=== PATIENT | female | born 1990 | race Caucasian/White ===

== ENCOUNTER 2025-01-07 09:36 | Outpatient (OUT) | payer MEDICARE, MEDICAID, SELFPAY ==
[2025-01-07 10:31] LABS: Basophils Percent Auto 0.5 % (0.2-2.0); Eosinophils Absolute Auto 0.1 10^3/uL (0.0-0.7); Eosinophils Percent Auto 1.4 % (0.9-7.0); Hematocrit 39.6 % (36.0-48.0); Hemoglobin 13.1 g/dL (12.0-16.0); Immature Granulocytes Abs Auto 0.01 10^3/uL (0.00-0.03); Immature Granulocytes Pct Auto 0.2 % (0.0-0.5); Lymphocytes Absolute Auto 1.5 10^3/uL (1.2-3.8); Lymphocytes Percent Auto 27.8 % (20.5-60.0); Mean Corpuscular HGB Conc 33.1 g/dL (29.9-35.2); Mean Corpuscular Hemoglobin 27.5 pg (26.7-34.0); Mean Platelet Volume 9.1 fL (9.5-13.5); Monocytes Absolute Auto 0.4 10^3/uL (0.3-0.8); Monocytes Percent Auto 7.8 % (1.7-12.0); Neutrophils Absolute Auto 3.4 10^3/uL (1.4-6.5); Neutrophils Percent Auto 62.3 % (43.0-75.0); Platelet Count 315 10^3/uL (150-450); Red Blood Count 4.77 10^6/uL (4.20-5.40); Red Cell Distribution Width 13.2 % (11.0-15.0); White Blood Count 5.5 10^3/uL (4.0-11.0)
[2025-01-07 10:38] LABS: Estimated Average Glucose 108 mg/dL; Glycohemoglobin A1C 5.4 % (4.5-6.2)
[2025-01-07 11:50] LABS: Alanine Aminotransferase 20 U/L (14-59); Albumin Globulin Ratio 1.1; Albumin Level 3.9 g/dL (3.4-5.0); Alkaline Phosphatase 80 U/L (46-116); Anion Gap 11.4; Aspartate Amino Transferase 14 U/L (15-37); BUN Creatinine Ratio 15.3; Bilirubin Total 0.4 mg/dL (0.2-1.0); Carbon Dioxide 27.6 mmol/L (21.0-32.0); Chloride 104 mmol/L (98-107); Chol HDL Ratio 3.6; Cholesterol 196 mg/dL (<=200); Estimated GFR (African America >60 (>=60 mL/min/1.73m^2); Estimated GFR (Non-African Ame >60 (>=60 mL/min/1.73m^2); Free T3 3.08 pg/mL (2.18-3.98); Globulin 3.7 g/dL; Glucose 98 mg/dL (74-106); HDL Cholesterol 55 mg/dL (40-60); LDL Cholesterol Calculated 130.2 mg/dL; Sodium 139 mmol/L (136-145); Thyroid Stimulating Hormone 1.108 uIU/mL (0.358-3.740); Total Protein 7.6 g/dL (6.4-8.2); Triglycerides 54 mg/dL (<=150); VLDL CHOLESTEROL 10.8 mg/dL
[2025-01-08 13:09] LABS: Insulin 11.2 uIU/mL (2.6-24.9)
== END 2025-01-07 09:37 | disposition home or self-care (01) ==
PROVIDERS: PCP Nurse Practitioner Family; Visit Provider Nurse Practitioner Family
DX: E78.5 Hyperlipidemia, unspecified (principal); R73.01 Impaired fasting glucose; D50.9 Iron deficiency anemia, unspecified; R53.83 Other fatigue; E55.9 Vitamin D deficiency, unspecified
CPT/HCPCS: 36415; 80053; 80061; 82306; 83036; 83525; 83540; 84436; 84443; 84481; 85025

== ENCOUNTER 2025-02-27 12:44 | Outpatient (OUT) | payer MEDICARE, SELFPAY ==
--- NOTE | 2025-02-27 13:00 | CA_ITS ---
Patient Name: DOUG BARDALES MR#: [id number] : 1990 Exam Date: 02/27/2025 Ordering Doctor: DR. MITCHELL BARRERA M.D. ECHOCARDIOGRAM REPORT PROCEDURE: CA ECHO DOPPLER COMPLETE INDICATIONS: Dyspnea on exertion COMPARISON: None. DESCRIPTION: COMPLETE ECHOCARDIOGRAM Real-time transthoracic echocardiography with 2D, M-mode, spectral and color flow Doppler performed. QUALITY: Technical quality was good. LEFT VENTRICLE: Normal chamber size. Normal left ventricular wall thickness. Systolic function is normal. LV EF: Normal left ventricular ejection fraction, (>55%). DIASTOLIC: Normal diastolic function. ATRIAL SEPTUM: LEFT ATRIUM: Normal chamber size. RIGHT ATRIUM: Normal chamber size. RIGHT VENTRICLE: Normal chamber size. Normal right ventricular systolic function. TRICUSPID VALVE: Normal mobility and thickness. No stenosis with no regurgitation. Unable to assess right-sided pressures due to lack of measurable tricuspid regurgitation. MITRAL VALVE: Normal mobility and thickness. No evidence of mitral valve stenosis. There is no mitral annular calcification. Trivial mitral regurgitation. AORTIC VALVE: Normal trileaflet appearance. No visible sclerosis. Normal leaflet mobility. No evidence of aortic valve stenosis. No aortic regurgitation. AORTIC ROOT: Normal diameter and appearance, measuring 2.8 cm. Ascending aorta is normal in size, measuring 2.8 cm. PULMONIC VALVE: Normal thickness and mobility. No stenosis. Trivial regurgitation. PERICARDIUM: No evidence of pericardial effusion. IVC: Collapses with inspirations. IVC is normal in size. PLEURA: CONCLUSION: 1. Normal ventricular size and function. LVEF is estimated at 65%. 2. No significant valvular dysfunction. 3. Unable to assess right-sided pressures due to lack of measurable tricuspid regurgitation. 4. No pericardial effusion. Adult Echocardiography Procedure Report Left Ventricle LVEDD (3.7 - 5.6 cm): 4.60 cm LVESD (2.2 - 4.0 cm): 2.93 cm LVIVS thickness (0.6 - 1.2 cm): 0.85 cm LVPW thickness (0.5 - 1.0 cm): 1.05 cm e': 0.21 m/s E - e': 6.06 LVOT Max Gradient: 6.63 mm[Hg] LVOT Area (cm2): 1.29 m/s Peak Velocity (LVOT): 1.29 m/s LVOT Diameter 2.09 cm Left Atrium LA Volume Index (2D A2C): 25.83 ml/m2 Left Atrium Systolic Dimension: 4.34 cm Mitral Valve MV E to A Ratio: 1.49 Mitral Valve A-Wave Peak Velocity: 0.84 m/s Mitral Valve E-Wave Peak Velocity: 1.26 m/s Right Ventricle Aorta AO Root Diam: 2.77 cm Ascending Ao Diam: 2.79 cm Aortic Valve AoV Area (Peak Patrick): 2.23 cm2, 2.23 cm2 Peak Velocity(Antegrade Flow): 1.97 m/s Peak Gradient(Antegrade Flow): 15.60 mm[Hg] Tricuspid Valve Pulmonic Valve Peak Gradient: 7.38 mm[Hg], 9.19 mm[Hg] Right Atrium Right Atrium Systolic Pressure: 36.02 ml, 36.02 ml Dictated by: Hemant Ventura M.D. on 02/27/2025 at 17:52 Approved by: Hemant Ventura M.D. on 02/27/2025 at 17:58
== END 2025-02-27 12:45 | disposition home or self-care (01) ==
LOC: CARD 12:44
PROVIDERS: PCP Nurse Practitioner Family; Visit Provider Internal Medicine Cardiovascular Disease
DX: R06.09 Other forms of dyspnea (principal)
CPT/HCPCS: 93306

== ENCOUNTER 2025-07-03 11:09 | Outpatient (OUT) | payer MEDICARE, MEDICAID, SELFPAY ==
--- OUTSIDE RECORDS SUMMARY | 2024-10-05 04:00 | XMS_ITS ---
Author Organization [facility] Address [address] [place] [address] Care Team Providers Care Autocad Electrical Designer Name Role Phone Dr. Keven Pelayo Primary Care Provider REASON FOR VISIT FILLING Encounters Encounter Location Date Provider Diagnosis [facility] [address] [place] [address] 10/05/2024 Keven Pelayo Plan Of Treatment Next Appt Details Provider Name:Mikaela Salazar , 07/12/2025 11:15:00 AM, [address], [place], [address], Progress Notes * DOUG BARDALESDOB:1990 (34 yo F)Acc No.[id number]:10/05/2024 Patient: DOUG CAMACHO Provider: Cosme Pelayo DDS :1990 A ge:34 Y S ex:Female Date:10/05/2024 Address:[address] [place] [address], [id number] Subjective: * Chief Complaints: * 1 . FILLING. * Medical History: Objective: * Vitals: Assessment: Plan: * Treatment: * Images: * Electronic signature of Dr. Keven Pelayo , [facility], [id number] on 07/03/2025 at 10:31 AM EDT Sign off status: Pending * Provider: Cosme Pelayo DDS Date: 0 10/05/2024 Generated for Printi ng/Faoraciog/eTransmitting on: 1 10:31 AM EDT
--- OUTSIDE RECORDS SUMMARY | 2024-10-24 04:30 | XMS_ITS ---
Author Organization [facility] Address [address] [place] [address] Care Team Providers Care Meat Grader Name Role Phone Dr. Keven Pelayo Primary Care Provider [phone] Juany Nat Whipple Unavailable [phone] REASON FOR VISIT 6 MONTHS Encounters Encounter Location Date Provider Diagnosis [facility] [address] [place] [address] 10/24/2024 Nat Whipple Plan Of Treatment Next Appt Details Provider Name:Mikaela Salazar , 07/12/2025 11:15:00 AM, [address], [place], [address], Progress Notes * DOUG BARDALESDOB:1990 (34 yo F)Acc No.[id number]:10/24/2024 Patient: DOUG CAMACHO Provider: John Whipple :1990 A ge:34 Y S ex:Female Date:10/24/2024 Address:[facility] [place], [facility] Pcp:Dr. Keven Pelayo Subjective: * Chief Complaints: * 1 . 6 MONTHS. * Medical History: Objective: * Vitals: Assessment: Plan: * Treatment: * Images: * Electronic signature of Shaye Whipple on 07/03/2025 at 10:31 AM EDT Sign off status: Pending * Provider: John Whipple Date: 0 10/24/2024 Generated for Ariana leavitt/John/eTransmitting on: 1 10:31 AM EDT
--- OUTSIDE RECORDS SUMMARY | 2025-06-19 07:00 | XMS_ITS ---
Author Organization [facility] [place] Address [address] [place] [address] Care Team Providers Care Iv Rn Name Role Phone Nilsa Delgado Primary Care Provider Allergies No Known Allergies REASON FOR VISIT Years ago was on a weight loss med Truvy- said helps with POTS, BP and weight loss- stopped taking due to ingredients, now switched back and wants to restart, Few weeks ago she had a [id number] appointment with POTS Specialist- is getting tilt table test in June- they think its Hyperadrenergic POTS Medications Medication SIG (Take, Route, Frequency, Duration) Notes Start Date End Date Status hydroCHLOROthiazide 25 MG 1 tablet in morning Orally Once a day; Duration: 30 days 04/05/2025 Active Social History Tobacco Use: Social History Observation Description Date Details (start date - stop date) Never Smoker NA - NA Tobacco Control (Standard) Question Answer Notes Tobacco use: Nonsmoker Vital Signs Weight 203.8 lbs 06/19/2025 Height 60 in 06/19/2025 Blood pressure systolic 170 mm Hg 06/19/20 25 Blood pressure diastolic 86 mm Hg 025 BMI 39.8 kg/m2 06/19/2025 Encounters Encounter Location Date Provider Diagnosis [facility] [address] [place] [address] 06/19/2025 Nilsa Delgado HTN (hypertension) I10 Assessments Encounter Date Diagnosis (ICD Code) Assessment Notes Treatment Notes Treatment Clinical Notes Section Notes 06/19/2025 HTN (hypertension) (ICD-10 - I10) stop metoprolol on own states tolerates HCTZ, double dose bp check 2 weeks fu cardiology as scheduled Plan Of Treatment Medication Medication Name Sig Start Date Stop Date Notes hydroCHLOROthiazide 25 MG 1 tablet in th e morning Orally Once a day; Duration: 30 days 04/05/2025 Treatment Notes Assessment Notes HTN (hypertension) stop metoprolol on own states tolerates HCTZ, double dose bp check 2 weeks fu cardiology as scheduled Next Appt Details Follow Up: prn,2 Weeks, Reas on: Progress Notes * Raymon VASQUEZDOB:1990 (34 yo F)Acc No.[id number]:06/19/2025 Progress Note Patient: Raymon CAMACHO Provider: Sebastián Delgado ([facility]), JEWEL SORTER :1990 A ge:34 Y S ex:Female Date:06/19/2025 Address:[address] [place] [address], [address] [place], [id number] Check In:10:45 AM ESTCheck O ut:11:27 AM EST Subjective: * Chief Complaints: * 1 . Years ago was on a weight loss med Truvy- said helps with POTS, BP and weight loss- stopped taking due to ingredients, now switched back and wants to restart. 2. Few weeks ago she had a hyjz-j-yjiskr appointment with POTS Specialist- is getting tilt table test in June- they think its Hyperadrenergic POTS. * HPI: G eneral: discuss supplement she wants to take cardiology working up for sub type of POTS she says has upcoming tilt table test. * ROS: G eneral/Constitutional: Fever d enies. H eadache d enies. W eight loss?denies. O ther l ightheaded at times, worse with a lot of stooping and bending. ? O phthalmologic: Discharge d enies. E ye Pain d enies. I tching and redness d enies. E NT: Nasal discharge d enies. N tawanna congestion d enies.?Sore throat d enies. C ardiovascular: Chest tightness/ heavy pressure d enies. R apid heart rate a t times. S welling of extremities d enies. C hest pain d enies. R espiratory: Productive cough d enies. C hest pain d enies. C ough d enies. S hortness of breath d enies. W heezing d enies. ? G astrointestinal: Abdominal pain d enies. C onstipation d enies. D ecreased appetite d enies. D iarrhea d enies. N ausea d enies. V omiting?denies. G enitourinary: Urinary incontinence d enies. P ainful urination d enies. M usculoskeletal: Back pain d enies. N elise pain d enies. M uscle aches d enies. S kin: Rash d enies. S kin lesion(s) d enies. ? * Active Problem List I10 HTN (hypertension) Modified On:01/04/2025 Status:confirmed Z91.018 Food allergy Modified On:01/04/2025 Status:confirmed N94.3 PMDD (premenstrual d ysphoric disorder) Modified On:01/05/2025 Status:confirmed F41.9 Anxiety and depressi on Modified On:01/05/2025 Status:confirmed F43.10 PTSD (post-traumatic stress disorder) Modified On:01/05/2025 Status:confirmed F93.8 Other childhood emot ional disorders Modified On:01/05/2025 Status:confirmed F42.9 OCD (obsessive compu lsive disorder) Modified On:01/05/2025 Status:confirmed F95.2 Tourette disorder Modified On:01/05/2025 Status:confirmed * Medical History: S eizures, PTSD (post-traumatic stress disorder), Other childhood emotional disorders, OCD (obsessive compulsive disorder), Tourette disorder. * Surgical History: r emoval of lymph node in neck as a child . * Hospitalization/Major Diagno stic Procedure: D enies Past Hospitalization. * Family History: B rother(s): alive. S ister(s): alive. 1 brother(s) , 1 sister(s) . . * Social History: T obacco Use: T obacco Control (Standard) T obacco use: N onsmoker * Medications: T aking hydroCHLOROthiazide 12.5 MG Tablet 1 tablet in the morning Orally Once a day , Discontinued Metoprolol Succinate ER 25 MG Tablet Extended Release 24 Hour 1 tablet Orally Once a day , Medication List reviewed and reconciled with the patient * Allergies: N .K.D.A. Objective: * Vitals: W t:203.8lbs, Ht: 60 in, BP:170/86mm Hg, BMI:39.8Index. * Examination: G eneral Examinations: GENERAL APPEARANCE: a lert and oriented, in no acute distress, obese. EYES: c onjunctiva normal, sclera non-icteric. NOSE: n ormal external appearance. LUNGS: c lear to auscultation bilaterally. CARDIO: r egular rate and rhythm, S1, S2 normal. MUSCULOSKELETAL: G ait and station normal. SKIN: w arm and dry. Assessment: * Assessment: 1. H TN (hypertension) - I10 (Primary) Plan: * Treatment: * Preventive Medicine: Screenings/Counseling: B UT ACTION PLAN Above Normal BMI Follow-up D ietary management education, guidance, and counseling * Follow Up: p rn,2 Weeks * * Electronically signed by Shantel Delgado , AUTOMATIC STACKER, [email or web address] on 06/20/2025 at 09:59 AM EDT Sign off status: Completed Visit Status: C HK (Check Out) true * Provider: Sebastián Delgado ([facility]), JEWEL SORTER Date: 0 06/19/2025 Generated for Ariana leavitt/John/eTransmitting on: 1 11:11 AM EDT History and Physical Notes * HPI (History of Present Illness) Category Sub-Category Detail Notes Category Not es General discuss supplement she wants to take cardiology working up for sub type of POTS she says has upcoming tilt table test Examination Category Sub-Category Detail Notes Category Not es General Examinations GENERAL APPEARANCE: alert a nd oriented, in no acute distress, obese EYES: conjunctiva normal, sclera non-icteric EARS: NOSE: normal external appe arance THROAT: CARDIO: regular rate and rhy thm, S1, S2 normal LUNGS: clear to auscultatio n bilaterally ABDOMEN: SKIN: warm and dry BACK: MUSCULOSKELETAL: Gait and station nor mal LYMPH NODES:
--- OUTSIDE RECORDS SUMMARY | 2025-07-03 11:12 | XMS_ITS | Patient Health Record ---
Author Organization [facility] [place] Address [address] [place] [address] Care Team Providers Care I O Psychologist Name Role Phone Nilsa Delgado Primary Care Provider [phone] Allergies No Known Allergies Results Component Value Reference Range Notes CA echo doppler complete Reviewed date:02/28/2025 08:47:04 AM Interpretation: Performing Lab: Notes/Report: Source Facility: [place] [address] Cardiology Report Signed Patient: RAYMON VASQUEZ MR#: [id number] : 1990 Acct:[id number] Age/Sex: 34 / F ADM Date: 02/27/25 Loc: CARD Attending Dr: Mitchell Benites M.D. Ordering Physician: Mitchell Benites M.D. Date of Service: 02/27/25 Procedure(s): CA echo doppler complete Accession Number(s): [id number] cc: NILSA DELGADO ; Mitchell Benites M.D. Patient Name: RAYMON VASQUEZ MR#: [id number] : 1990 Exam Date: 02/27/2025 Ordering Doctor: DR. MITCHELL BENITES M.D. ECHOCARDIOGRAM REPORT PROCEDURE: CA ECHO DOPPLER COMPLETE INDICATIONS: Dyspnea on exertion COMPARISON: None. DESCRIPTION: COMPLETE ECHOCARDIOGRAM Real-time transthoracic echocardiography with 2D, M-mode, spectral and color flow Doppler performed. QUALITY: Technical quality was good. LEFT VENTRICLE: Normal chamber size. Normal left ventricular wall thickness. Systolic function is normal. LV EF: Normal left ventricular ejection fraction, (>55%). DIASTOLIC: Normal diastolic function. ATRIAL SEPTUM: LEFT ATRIUM: Normal chamber size. RIGHT ATRIUM: Normal chamber size. RIGHT VENTRICLE: Normal chamber size. Normal right ventricular systolic function. TRICUSPID VALVE: Normal mobility and thickness. No stenosis with no regurgitation. Unable to assess right-sided pressures due to lack of measurable tricuspid regurgitation. MITRAL VALVE: Normal mobility and thickness. No evidence of mitral valve stenosis. There is no mitral annular calcification. Trivial mitral regurgitation. AORTIC VALVE: Normal trileaflet appearance. No visible sclerosis. Normal leaflet mobility. No evidence of aortic valve stenosis. No aortic regurgitation. AORTIC ROOT: Normal diameter and appearance, measuring 2.8 cm. Ascending aorta is normal in size, measuring 2.8 cm. PULMONIC VALVE: Normal thickness and mobility. No stenosis. Trivial regurgitation. PERICARDIUM: No evidence of pericardial effusion. IVC: Collapses with inspirations. IVC is normal in size. PLEURA: CONCLUSION: 1. Normal ventricular size and function. LVEF is estimated at 65%. 2. No significant valvular dysfunction. 3. Unable to assess right-sided pressures due to lack of measurable tricuspid regurgitation. 4. No pericardial effusion. Adult Echocardiography Procedure Report Left Ventricle LVEDD (3.7 - 5.6 cm): 4.60 cm LVESD (2.2 - 4.0 cm): 2.93 cm LVIVS thickness (0.6 - 1.2 cm): 0.85 cm LVPW thickness (0.5 - 1.0 cm): 1.05 cm e': 0.21 m/s E - e': 6.06 LVOT Max Gradient: 6.63 mm[Hg] LVOT Area (cm2): 1.29 m/s Peak Velocity (LVOT): 1.29 m/s LVOT Diameter 2.09 cm Left Atrium LA Volume Index (2D A2C): 25.83 ml/m2 Left Atrium Systolic Dimension: 4.34 cm Mitral Valve MV E to A Ratio: 1.49 Mitral Valve A-Wave Peak Velocity: 0.84 m/s Mitral Valve E-Wave Peak Velocity: 1.26 m/s Right Ventricle Aorta AO Root Diam: 2.77 cm Ascending Ao Diam: 2.79 cm Aortic Valve AoV Area (Peak Patrick): 2.23 cm2, 2.23 cm2 Peak Velocity(Antegrade Flow): 1.97 m/s Peak Gradient(Antegrade Flow): 15.60 mm[Hg] Tricuspid Valve Pulmonic Valve Peak Gradient: 7.38 mm[Hg], 9.19 mm[Hg] Right Atrium Right Atrium Systolic Pressure: 36.02 ml, 36.02 ml Dictated by: Rose Marie Ventura M.D. on 02/27/2025 at 17:52 Approved by: Rose Marie Ventura M.D. on 02/27/2025 at 17:58 Dictated By: ROSE MARIE VENTURA Signed By: 02/27/251758 DD/ 57 TD/TT: [employer]: GLYCOHEMOGLOBIN A1C Reviewed date:01/09/2025 02:20:40 PM Interpretation: Performing Lab: Notes/Report: [facility] , Glycohemoglobin A1C 5.4 4.5-6.2 % ADA RECOMMENDED LIMIT 4.0 - 6.0 > 7.0 ADA THERAPEUTIC TARGET < 7.0 ACTION SUGGESTED Estimated Average Glucose 108 Performing Lab: see note ML - [facility] LB CBC AUTO DIFF Reviewed date:01/09/2025 02:20:40 PM Interpretation: Performing Lab: Notes/Report: [facility] , White Blood Count 5.5 4.0-11.0 10 3/uL Red Blood Count 4.77 4.20-5.40 10 6/uL Hemoglobin 13.1 12.0-16.0 g/dL Hematocrit 39.6 36.0-48.0 % Mean Corpuscular Volume 83.0 81.0-99.0 fL Mean Corpuscular Hemoglobin 27.5 26.7-34.0 pg Mean Corpuscular HGB Conc 33.1 29.9-35.2 g/dL Red Cell Distribution Width 13.2 11.0-15.0 % Platelet Count 315 150-450 10 3/uL Mean Platelet Volume 9.1 9.5-13.5 fL Neutrophils Percent Auto 62.3 43.0-75.0 % Lymphocytes Percent Auto 27.8 20.5-60.0 % Monocytes Percent Auto 7.8 1.7-12.0 % Eosinophils Percent Auto 1.4 0.9-7.0 % Basophils Percent Auto 0.5 0.2-2.0 % Immature Granulocytes Pct Auto 0.2 0.0-0.5 % Neutrophils Absolute Auto 3.4 1.4-6.5 10 3/uL Lymphocytes Absolute Auto 1.5 1.2-3.8 10 3/uL Monocytes Absolute Auto 0.4 0.3-0.8 10 3/uL Eosinophils Absolute Auto 0.1 0.0-0.7 10 3/uL Basophils Absolute Auto 0.0 0.0-0.1 10 3/uL Immature Granulocytes Abs Auto 0.01 0.00-0.03 10 3/uL Performing Lab: see note ML - [facility] LB VITAMIN D 25 [place] Reviewed date:01/09/2025 02:20:40 PM Interpretation: Performing Lab: Notes/Report: [facility] , Vitamin D 47.7 20-<30 ng/mL Vit D insufficient >100 ng/mL Potential Toxicity <20 ng/mL Vit D deficient 30-100 ng/mL Vit D sufficient Performing Lab: see note - [facility] LB TSH Reviewed date:01/09/2025 02:20:40 PM Interpretation: Performing Lab: Notes/Report: [facility] , Thyroid Stimulating Hormone 1.108 0.358-3.740 u IU/mL Performing Lab: see note - [facility] LB T4 Reviewed date:01/09/2025 02:20:40 PM Interpretation: Performing Lab: Notes/Report: [facility] , T4 Thyroxine 8.90 4.80-13.90 ug/dL Performing Lab: see note - [facility] LB PROF 14(COMP METB) Reviewed date:01/09/2025 02:20:40 PM Interpretation: Performing Lab: Notes/Report: [facility] , Sodium 139 136-145 mmol/L Potassium 4.0 3.5-5.1 mmol/L Chloride 104 98-107 mmol/L Carbon Dioxide 27.6 21.0-32.0 mmol/L Anion Gap 11.4 Glucose 98 74-106 mg/dL Blood Urea Nitrogen 9.0 7.0-18.0 mg/dL Creatinine 0.59 0.55-1.02 mg/dL Estimated GFR ( Aiyana >60 >=60 mL/min/1.73m 2 Estimated GFR (Non- Julita >60 >=60 mL/min/1.73m 2 BUN Creatinine Ratio 15.3 Calcium 9.0 8.5-10.1 mg/dL Bilirubin Total 0.4 0.2-1.0 mg/dL Aspartate Amino Transferase 14 15-37 U/L Alanine Aminotransferase 20 14-59 U/L Alkaline Phosphatase 80 46-116 U/L Total Protein 7.6 6.4-8.2 g/dL Albumin Level 3.9 3.4-5.0 g/dL Globulin 3.7 Albumin Globulin Ratio 1.1 Performing Lab: see note ML - [facility] LIPID PROFILE Reviewed date:01/09/2025 02:20:40 PM Interpretation: Performing Lab: Notes/Report: [facility] , Triglycerides 54 <=150 mg/dL Cholesterol 196 <=200 mg/dL HDL Cholesterol 55 40-60 mg/dL > or =60 mg/dl - LOW CARDIOVASCULAR RISK <40 mg/dl - HIGH CARDIOVASCULAR RISK LDL Cholesterol Calculated 130.2 100-129 mg/dl NEAR OR ABOVE OPTIMAL >190 mg/dl VERY HIGH 160-189 mg/dl HIGH <100 mg/dl OPTIMAL 130-159 mg/dl BORDERLINE HIGH VLDL CHOLESTEROL 10.8 Chol HDL Ratio 3.6 7.1 - 11.0 MODERATE RISK 4.4 - 7.1 AVERAGE RISK >11.0 HIGH RISK 3.3 - 4.4 LOW RISK Performing Lab: see note ML - [facility] IRON Reviewed date:01/09/2025 02:20:40 PM Interpretation: Performing Lab: Notes/Report: [facility] , Iron 77.0 50.0-170.0 ug/dL Performing Lab: see note ML - [facility] LB INSULIN Reviewed date:01/09/2025 02:20:40 PM Interpretation: Performing Lab: Notes/Report: [facility] , Insulin 11.2 2.6-24.9 uIU/mL Performed at: - [facility] Re[facility] Operator: Josue Fuentes PhD, Phone: [phone] [address] [place], [place] [phone] Performing Lab: see note - [facility] LB FREE T3 Reviewed date:01/09/2025 02:20:40 PM Interpretation: Performing Lab: Notes/Report: [facility] , Free T3 3.08 2.18-3.98 pg/mL Performing Lab: see note ML - [facility] Reason For Referral Reason requesting food miriam rgy testing Diagnosis 1 Food allergy (Z91.01 8) Referral Organization [facility] Referring Provider First Name Nilsa Referring Provider Last Name Sandy Referring Provider [facility] Referred Provider Jero Carranza Referred Provider Specialty Allergy/Immu nology Referral Priority Routine Reason HTN and concerns for POTS Diagnosis 1 HTN (hypertension) ( I10) Referral Organization [facility] Referring Provider First Name Nilsa Referring Provider Last Name Sandy Referring Provider [facility] Referred Provider Rose Marie Ventura Referred Provider Specialty Cardiology Referral Priority Routine Diagnosis 1 HTN (hypertension) ( I10) Referral Organization [facility] Referring Provider First Name Nilsa Referring Provider Last Name Sandy Referring Provider [facility] Referred Provider Specialty Dietitian Referral Priority Routine Medications Medication SIG (Take, Route, Frequency, Duration) Notes Start Date End Date Status hydroCHLOROthiazide 12.5 MG 1 tablet in the morning Orally Once a day; Duration: 30 days 04/05/2025 Active Irbesartan 150 MG 1 tablet Orally Once a day; Duration: 30 days 07/03/2025 Active Social History Tobacco Use: Social History Observation Description Date Details (start date - stop date) Never Smoker NA - NA Tobacco Control (Standard) Question Answer Notes Tobacco use: Nonsmoker AUDIT-C (Standard) Question Answer Notes Did you have a drink containing alcohol in the p ast year? No Points 0 Interpretation Negative Problems Problem Type SNOMED Code ICD Code Onset Dates Problem Status W/U Status Risk Notes Problem Moderate major depression, single episode (50684455) Major depressive disorder, single episode, moderate (F32.1) Active confirmed Problem Childhood emotional disorder (802970249) Other childhood emotional disorders (F93.8) Active confirmed Problem Hypertension (51519475) HTN (hypertension) (I10) Active confirmed Problem Posttraumatic stress disorder (61719847) PTSD (post-traumati c stress disorder) (F43.10) Active confirmed Problem Food allergy (210836561) Food allergy (Z91.018) Active confirmed Problem Premenstrual tension syndrome (26675799) PMDD (premenstrual dysphoric disorder) (N94.3) Active confirmed Problem Mixed anxiety and depressive disorder (971122139) Anxiety and depression (F41.9) Active confirmed Problem Danny de la Tourette's syndrome (7257636) Tourette disorder (F95.2) Active confirmed Problem Obsessive-compuls slivana disorder (069911752) OCD (obsessive compulsive disorder) (F42.9) Active confirmed Vital Signs Heart Rate 94 /min 07/03/2025 Oximetry 98 % 07/03/2025 Blood pressure diastolic 90 mm Hg 07/03/2025 Height 60 in 07/03/2025 Blood pressure systolic 160 mm Hg 07/03/2025 Weight 204.8 lbs 07/03/2025 BMI 39.99 kg/m2 07/03/2025 Encounters Encounter Location Date Provider Diagnosis [facility] [address] [place] [address] 01/04/2025 Nilsa Delgado HTN (hypertension) I10 ; Food allergy Z91.018 and Anxiety and depression F41.9 [facility] [address] [place] [address] 04/05/2025 Nilsa Delgado HTN (hypertension) I10 [facility] [address] [place] [address] 06/19/2025 Nilsa Delgado HTN (hypertension) I10 [facility] [address] [place] [address] 07/03/2025 Nilsa Delgado HTN (hypertension) I10 [facility] [address] [place] [address] 01/05/2025 Nilsa Delgado [facility] [address] [place] [address] 01/09/2025 Nilsa Delgado [facility] [address] [place] [address] 04/05/2025 Nilsa Delgado HTN (hypertension) I10 Assessments Encounter Date Diagnosis (ICD Code) Assessment Notes Treatment Notes Treatment Clinical Notes Section Notes 04/05/2025 HTN (hypertension) (ICD-10 - I10) record BP , report 2 weeks fu cardiology as scheduled stopped taking metoprolol d/t SE referral to RD as requested, Pro Dow 06/19/2025 HTN (hypertension) (ICD-10 - I10) stop metoprolol on own states tolerates HCTZ, double dose bp check 2 weeks fu cardiology as scheduled 07/03/2025 HTN (hypertension) (ICD-10 - I10) states doesnt feel well on increased dose HCTZ, reduce to prev dosing discussed sx may be related to HTN itself reviewed BP ranging from 160-188/78-90 here in office willing to try another bp med, add irbesartan, fu 2-4 weeks 04/05/2025 HTN (hypertension) (ICD-10 - I10) 01/04/2025 HTN (hypertension) (ICD-10 - I10) also concerned about POTS requesting cardiology consult discussed lifestyle modifications to reduce BP wt loss encouraged patient resistant to meds at this time, wants to discuss with cardiology does have hx high BP 01/04/2025 Food allergy (ICD-10 - Z91.018) requesting testing for food allergies 01/04/2025 Anxiety and depression (ICD-10 - F41.9) continue counseling discussed meds Plan Of Treatment Pending Test Test Name Order Date HEMOGLOBIN A1C (GLYCO) 01/04/2025 IRON, TOTAL 01/04/2025 LIPID PANEL (CHOL/TRIG/HDL/LDL) 01/05/20 25 VITAMIN D, 25 LEVEL (TOTAL) 01/04/2025 Insulin Level 01/04/2025 THYROID PANEL (T4/TSH/FREE T3) COMPREHENSIVE METABOLIC PANEL 07/03/2025 CMP (COMP MET MARK) w/eGFR CKD-EPI 2024 CBC WITH DIFF 01/04/2025 Insurance Providers Payer Name Payer Address Payer Phone Subscriber Number Group Number Insured Name Patient Relationship to Insured Coverage Start Date Coverage End Date [employer] D[employer]V PRIMARY MEDICARE [address] [place] [address] [id number] Raymon Vasquez Self - patient is the insured [employer] DUAL SECONDARY MEDICAID ONLY [address] [place] [address] [phone] [id number] Raymon Vasquez Self - patient is the insured Medical (General) History Medical History History ICD Code Seizures R56.9 PTSD (post-traumatic stress disorder) F4 3.10 Other childhood emotional disorders F93. 8 OCD (obsessive compulsive disorder) F42. 9 Tourette disorder F95.2 Surgical History Surgery Date(Month/Year) removal of lymph node in neck as a child
--- OUTSIDE RECORDS SUMMARY | 2025-07-03 11:12 | XMS_ITS | Encounter Summary ---
Author Organization [facility] Address [address] [place] [address] Care Team Providers Care Data Control Clerk Name Role Phone Nilsa Delgado CNP Primary Care Provider [phone] Reason for Visit * Reason Onset Date Comments Med Advice (Restarting Truvy) 06/13/2025 Encounter Details Date Type Department Care Team (Late st Contact Info) Description 06/13/2025 Telephone [facility] [address] [place] [address] Simran Hernández MA Med Advice (Restarting Truvy) Social History Tobacco Use Types Packs/Day Years Used Date Smoking Tobacco: Never Smokeless Tobacco: Never Alcohol Use Standard Drinks/Week Comments Not Currently 0 (1 standard drink = 0.6 oz pur e alcohol) Humiliation, Afraid, Rape, and Kick questionnair e Answer Date Recorded Within the last year, have y ou been afraid of your partner or ex-partner? No 06/08/2025 Emotionally Abused Not on file 06/08/2025 Physically Abused Not on file 06/08/2025 Sexually Abused Not on file 06/08/2025 PHQ-2 Answer Date Recorded Patient Health Questionnaire-2 Score 0 06/08/2025 Comments Unknown Sex and Gender Information Value Date Recorded Sex Assigned at Choose not to disclose 07/2025 10:46 AM EDT Legal Sex Female 10:12 PM EDT Gender Identity Choose not to disclose 10:46 AM EDT Sexual Orientation Choose not to disclose 2024 10:46 AM EDT documented as of this encounter Miscellaneous Notes * Telephone Encounter - Simran Hernández MA - 06/13/2025 10:20 AM EDT Pt called stating she had a good experience while previously taking Truvy (weight and BP were manageable), pt states she stopped the med due to a change in ingredients, after which symptoms returned (numbness in feet, elevated BP, and presyncope), pt states she is contemplating restarting the med and would like advice from Devika Samuels on whether she should proceed; advised pt to contact PCP/FREIGHT TEAM ASSOCIATE (Shantel Delgado), pt states she did but did not receive much feedback. Please advise. documented in this encounter Plan of Treatment Upcoming Encounters Date Type Department Care Team (Late st Contact Info) Description 07/05/2025 9:00 AM EDT Appointment [facility] Heart Station [address] [place] [address] 07/26/2025 10:00 AM EDT Office Visit [facility] [address] [place] [address] Ruth Benites MD [address] [place] [address] documented as of this encounter Visit Diagnoses Not on filedocumented in this encounter Care Teams Data Control Clerk Relationship Specialty Start Date End Date Nilsa Delgado CNP [address] [facility], [place] [address] PCP - General Family Medicine 01/13/25 documented as of this encounter
--- OUTSIDE RECORDS SUMMARY | 2025-07-03 11:12 | XMS_ITS | Clinical Summary ---
Author Organization [facility] Address [address] [place] [address] Care Team Providers Care Injection Molding Machine Operator Name Role Phone Kvng Monreal John HOPSON Primary Care Provider [phone] Allergies Active Allergy Reactions Criticality Noted Date Comments Latex Hives 09/01/2016 Molds & Smuts Hives,Rash Low 09/01/2016 Dust and mold [place] Flavoring Agent (Non-Screening) Hives,Swelling 08/25/2016 Throat swells Medications UNABLE TO FIND Med Name: bravenly Active azelastine (Astelin) 0.1 % nasal sprayIndication s:Chronic rhinitis Administer 2 sprays into each nostril in the morning and 2 sprays before bedtime. Use in each nostril as directed. 90 mL 3 5 02/09/20 26 Active Active Problems No known active problems Family History Relation Name Status Comments Father Alive Mother Social History Tobacco Use Types Packs/Day Years Used Date Smoking Tobacco: Never Smokeless Tobacco: Never Tobacco Cessation:Counseling Given: Not Answered Alcohol Use Standard Drinks/Week Comments Not Currently 0 (1 standard drink = 0.6 oz pur e alcohol) Comments No Sex and Gender Information Value Date Recorded Sex Assigned at Not on file Legal Sex Female 6:58 PM EDT Gender Identity Not on file Sexual Orientation Not on file Last Filed Vital Signs Vital Sign Reading Time Taken Comments Blood Pressure 150/84 10/12/2024 10:12 AM EST Pulse - - Temperature - - Respiratory Rate - - Oxygen Saturation - - Inhaled Oxygen Concentration - - Weight 80.7 kg (178 lb) 02/08/2025 9:41 AM EDT Height 152.4 cm (5') 02/08/2025 9:41 AM EDT Body Mass Index 34.76 02/08/2025 9:41 AM EDT Plan of Treatment Upcoming Encounters Date Type Department Care Team (Late st Contact Info) Description 08/16/2025 1:15 PM EST Office Visit [facility] [address] [place] [address] [phone] Lisa Phillips DO [address] [phone] Insurance [employer]M MEDICARE AD[facility]ANTAGE [facility] Care Teams Injection Molding Machine Operator Relationship Specialty Start Date End Date Kvng Monreal DC [address] [place] [address] PCP - General 08/09/24
--- OUTSIDE RECORDS SUMMARY | 2025-07-03 11:12 | XMS_ITS | Clinical Summary ---
Author Organization [email or web address] Address [id number] [address] [place] [address] Care Team Providers Care Logging Supervisor Name Role Phone AniyahAdriana rodriguez Victor Manuel CARDN-CN Primary Care Provider + Allergies Active Allergy Reactions Criticality Noted Date Comments Latex, Natural Rubber Hives 09/01/2016 Mold Hives,Rash Low 09/01/2016 Dust and mold [place] Flavor Hives,Swelling 08/25/2016 Throat swells Medications vit no.112-folate no6 1 mg tablet,chewableI ndications:Pregn arron, unspecified gestational age Chew 1 tablet and swallow daily. 90 tablet 4 12/14/2017 Active Active Problems Problem Noted Date Diagnosed Date Annual physical exam 09/01/2016 Tourette's disease 09/01/2016 Autism disorder 09/01/2016 ADHD (attention deficit hyperactivity disorder) 09/01/2016 OCD (obsessive compulsive disorder) 09/01/2016 Family History Medical History Relation Name Comments Cancer Maternal Grandfather pancrea tic Cancer Maternal Grandmother breast Diabetes Maternal Grandmother Bipolar disorder Mother Cancer Mother breast- diagnos ed in her early 40's Hyperlipidemia Mother Hypertension Mother OCD Mother Epilepsy Paternal Aunt 1 Epilepsy Paternal Aunt 2 Cancer Paternal Grandfather breast- diagnosed in his 50's Relation Name Status Comments Father Alive Maternal Grandfather Maternal Grandmother Alive Mother Paternal Aunt 1 Alive Paternal Aunt 2 Paternal Grandfather Paternal Grandmother Alive Social History Tobacco Use Types Packs/Day Years Used Date Smoking Tobacco: Never Smokeless Tobacco: Never Alcohol Use Standard Drinks/Week Comments Yes 1 (1 standard drink = 0.6 oz pur e alcohol) occassional Childcare Answer Date Recorded Childcare Unknown 03/08/2019 Employment Answer Date Recorded Employment Unknown 03/08/2019 Purpose - Life Answer Date Recorded Purpose and direction in life Unknown Comments No Sex and Gender Information Value Date Recorded Sex Assigned at Not on file Legal Sex Female 5:46 PM EDT Gender Identity Not on file Sexual Orientation Not on file Last Filed Vital Signs Vital Sign Reading Time Taken Comments Blood Pressure 150/70 12/14/2017 9:46 AM EDT Pulse - - Temperature - - Respiratory Rate - - Oxygen Saturation - - Inhaled Oxygen Concentration - - Weight 98.4 kg (217 lb) 12/14/2017 9:46 AM EDT Height 153.7 cm (5' 0.5 ) 09/01/2016 11:21 AM ES T Body Mass Index 41.68 09/01/2016 11:21 AM EST Plan of Treatment Health Maintenance Due Date Last Done Comments Depression Screening 2003 Tobacco Screening 2003 Adult BMI Screening 2009 DTaP,Tdap and Td Vaccines (1 - Tdap) 2010 Pap Smear 2012 Influenza Vaccine 05/29/2025 Medical Devices Not on file Insurance MEDICARE MEDICAID [place] Care Teams Logging Supervisor Relationship Specialty Start Date End Date Adriana Cuellar APRN-CNM [address] [place], [place] [id number] PCP - General Nurse [employer] Truck Driver 09/01/16
--- OUTSIDE RECORDS SUMMARY | 2025-07-03 11:12 | XMS_ITS | Clinical Summary ---
Author Organization [facility] Address [address] [place] [address] Care Team Providers Care Audit Tech Name Role Phone Nilsa Delgado CNP Primary Care Provider [phone] Allergies Active Allergy Reactions Criticality Noted Date Comments Gluten GI intolerance 06/08/2025 Lactose GI intolerance 06/08/2025 Latex, Natural Rubber Hives 09/01/2016 Mold Hives,Rash Low 09/01/2016 Dust and mold Soy GI intolerance 06/08/2025 Lucien Flavor Hives,Swelling 08/25/2016 Throat swells Medications hydroCHLOROthiaz geovanna 12.5 mg tablet Active metoprolol succinate XL (Toprol-XL) 25 mg 24 hr tabletIndication s:Benign hypertensive heart disease without congestive heart failure Take 1 tablet (25 mg) by mouth once daily as directed. Do not crush or chew. 90 tablet 3 5 025 Discontinued azelastine (Astelin) 137 mcg (0.1 %) nasal spray 5 025 Discontinued Active Problems Problem Noted Date Diagnosed Date Orthostatic intolerance 06/08/2025 Palpitations 03/29/2025 Dizziness 03/29/2025 Sinus tachycardia 03/29/2025 Pure hypercholesterolemia 03/29/2025 Class 2 obesity due to exces s calories without serious comorbidity with body mass index (BMI) of 38.0 to 38.9 in adult 03/29/2025 Benign hypertensive heart di sease without congestive heart failure 03/29/2025 ADHD (attention deficit hyperactivity disorder) 09/01/2016 Annual physical exam 09/01/2016 Autism disorder 09/01/2016 OCD (obsessive compulsive disorder) 09/01/2016 Tourette's disease 09/01/2016 Encounters Date Type Department Care Team Description 06/13/2025 Telephone [facility] [address] [place] [id number] Simran Hernández MA Med Advice (Restarting Truvy) 06/08/2025 2:00 PM EDT Telemedicine [facility] [address] [place] [address] Elena Samuels CNP Syncope, unspecified syncope type (Primary Dx); Orthostatic intolerance; Benign hypertensive heart disease without congestive heart failure 05/08/2025 Telephone [facility] [address] [place] [address] Simran Hernández MA 05/05/2025 Telephone [facility] [place] [address] [place] [address] Halley Canales MA from Last 3 Months Family History Medical History Relation Name Comments Heart attack Father Cancer Mother Heart attack Paternal Grandmother Relation Name Status Comments Father Alive Mother Paternal Grandmother Social History Tobacco Use Types Packs/Day Years [...] not to disclose 2024 10:46 AM EDT Last Filed Vital Signs Vital Sign Reading Time Taken Comments Blood Pressure 152/85 03/29/2025 9:54 AM EDT Pulse 108 03/29/2025 9:54 AM EDT Temperature - - Respiratory Rate - - Oxygen Saturation 100% 03/29/2025 9:54 AM EDT Inhaled Oxygen Concentration - - Weight 83.5 kg (184 lb) 06/08/2025 1:35 PM EDT Height 162.6 cm (5' 4 ) 06/08/2025 1:35 PM EDT Body Mass Index 31.58 06/08/2025 1:35 PM EDT Plan of Treatment Upcoming Encounters Date Type Department Care Team (Late st Contact Info) Description 07/05/2025 9:00 AM EDT Appointment [facility] [address] [facility] [place] [address] 07/26/2025 10:00 AM EDT Office Visit [facility] at [facility] [address] [place] [address] Ruth Benites MD [address] [place] [address] Health Maintenance Due Date Last Done Comments Medicare Annual Wellness (AWV) 1991 Varicella Vaccines (1 of 2 - 13+ 2-dose series) 2004 Hepatitis B Vaccines (1 of 3 - 19+ 3-dose series) 2010 Pap Smear 2012 Adult Tetanus 2013 Cervical Cancer Screening 2021 HPV/Cotest 2021 COVID-19 Vaccine ( - 2023-2 5 season) 2025 Influenza Vaccine (#1) 2025 Depression Screening 06/08/2026 06/08/2025 Zoster Vaccines (1 of 2) 2041 HIB Vaccines Aged Out No longer eligi ble based on patient's age to complete this topic HPV Vaccines Aged Out No longer eligi ble based on patient's age to complete this topic IPV Vaccines Aged Out No longer eligi ble based on patient's age to complete this topic Meningococcal B Vaccine Aged Out No l onger eligible based on patient's age to complete this topic Meningococcal Vaccine Aged Out No yamila dexter eligible based on patient's age to complete this topic Pneumococcal Vaccine: Pediat rics (0 to 5 Years) and At-Risk Patients (6 to 64 Years) Aged Out No longer eligi ble based on patient's age to complete this topic Rotavirus Vaccines Aged Out No longer eligible based on patient's age to complete this topic Insurance [facility] MEDICARE ADVANTAGE AET MEDICAID Care Teams Audit Tech Relationship Specialty Start Date End Date Nilsa Delgado CNP [facility] [place] [address] PCP - General Family Medicine 01/13/25
--- OUTSIDE RECORDS SUMMARY | 2025-07-03 11:12 | XMS_ITS | Patient Health Record ---
Author Organization [facility] Address [address] [place] [address] Care Team Providers Care Small Wind Energy Installer Name Role Phone Dr. Keven Pelayo Primary Care Provider [phone] Mikaela Salazar Unavailable [phone] Nat Whipple Unavailable [phone] Pro Dow Unavailable [phone] Reason For Referral No Information Medications Medication SIG (Take, Route, Fr equency, Duration) Notes Start Date End Date Status Ibuprofen 800 MG 1 tablet with food o r milk as needed Orally Three times a day 10/07/2021 Active Ibuprofen 800 MG 1 tablet with food o r milk as needed Orally Three times a day 02/26/2024 Active Problems Problem Type SNOMED Code ICD Code Onset Dates Problem Status W/U Status Risk Notes Problem Hypertension (21787676) HTN (hypertens ion) (I10) Active confirmed Encounters Encounter Location Date Provider Diagnosis [facility] [address] [place] [address] 04/05/2025 Keven Pelayo [address] [place] [address] 05/17/2025 Pro Dow HTN (hypertension) I10 [facility] [address] [place] [address] 07/25/2024 Keven Pelayo Cracked tooth K03.81 [facility] [address] [place] [address] 12/07/2024 Keven Pelayo Dental caries on pit and fissure surface penetrating into dentin K02.52 [facility] [address] [place] [address] 12/28/2024Kyle Salazar Acute gingivitis, plaque induced K05.00 and Other dental procedure status Z98.818 Assessments Encounter Date Diagnosis (ICD Code) Assessment Notes Treatment Notes Treatment Clinical Notes Section Notes 07/25/2024 Cracked tooth (ICD-10 - K03.81) 12/07/2024 Dental caries on pit and fissure surface penetrating into dentin (ICD-10 - K02.52) 12/28/2024 Acute gingivitis, plaque induced (ICD-10 - K05.00) 05/17/2025 HTN (hypertension) (ICD-10 - I10) Pt presents for initial RD visit. Referred by Nilsa Delgado NP from [facility] Nutrition related Dx: I10 HTN (in referral documents) Nutrition RX: Chlorothiazide (per pt report) Motivators: Manage sodium intake for POTS & HTN, Weight loss Weight history: Was on weight loss supplement (Truvy) for 2-3 years and was down to 125 lbs, got off of it d/t not feeling well while taking it- then gained weight back. Has also tried other weight loss supplements seen on [employer] Food Allergies/Intolera nces: Gluten, dairy, food dyes, stays away from fast food Dental: Does not like the texture of chicken nuggets and mac and cheese (stated this is because she is on the austism spectrum) Appetite: Eats every 3-4 hours Grocery Shopping: [employer] and [email or web address] Household: Self and partner Cooking: Self Occupation: Works at [employer] Sleep: 7-8 hours per night GI: N/A - - - - - 24-HR Recall: Wake up: 7:00-8:00 am coffee with almond milk creamer Breakfast: 9:00am 3-4 eggs, apple Snack: 1:45-2:00pm ku[place]i yogurt with scoop of protein powder, squeeze pouch electrolytes, simple truth energy bar Lunch: N/A Snack: 3:00 pm tuna, watermelon, snack factory pretzel chips, squeeze pouch electrolytes Dinner: 7:00pm spaghetti (heart of palm noodles), garlic sauce Snack: N/A Beverages: [place] Milk (sweetened), water with electrolytes mix, cup of tea at night (honey and creamer) Physical Activity: Yoga videos Estimated [place] x 1.2 AF: 1,575 kcals/day for 0.5 lb/week weight loss - - - - - OBJECTIVE: Initial weight/BMI: 196.8 lbs / 38.43 kg/m2 (04/05/25) - - - - - Nutrition Rx: Plate method; non-starchy vegetables; lean, low sodium protein sources; complex carbohydrates; heart healthy fats Protein/day: 70-90g/day (0.8-1.0g/kg act body weight) Nutrition Dx: 1. Obesity related to limited physical activity, inconsistent energy intake/excessive carbohydrate intake, and limited access to nutrition education as evidenced by 24-hr recall showing intake beyond needs, reported physical activity below recommendations and BMI >30 kg/m2. 2. Inadequate nutrient intake (fiber) related to nutrition knowledge deficit as evidenced by 24 hr recall showing intake below recommended amount. - - - - - INTERVENTION: Summary of Visit/Education Provided: a) Plate method b) Importance of fiber/protein for blood sugar regulation and satiety c) Importance of not skipping meals d) Nutrition for POTS Worked with patient to set the following goals: 1) Eat within 2 hours of waking, small, frequent meals/snacks every 3-4 hours 2) Track food in [employer] 2-3 days per week to see calorie, protein, fiber, sodium and potassium intake - - - - - Other Relevant Information Discussed @ Visit: Pt is seeing a POTS specialist in May- I advised her to ask HORSE TRADER what the correct sodium range recommendation is for POTS & HTN dx - Materials Provided: plate method overview handouts, meal timing handout, high potassium foods handout, gluten free snack ideas handout, 16 snacks that include protein handout - - - - - Monitoring/Evaluat ion -Weight, total intake, nutrition related lab values - - - - - RD name and contact information provided. Patient with no further nutrition-related questions at this time. Patient to follow-up with ARGELIA CARMONA. Patient seen from 9:46-10:21 AM for a total of 35 minutes spent with patient. Seen by Pro Dow MPH, RD, LD 12/28/2024 Other dental procedure status (ICD-10 - Z98.818) Plan Of Treatment Next Appt Details Provider Name:Mikaela Martin , 07/12/2025 11:15:00 AM, [address], [place], [address], Insurance Providers Payer Name Payer Address Payer Phone Subscriber Number Group Number Insured Name Patient Relationship to Insured Coverage Start Date Coverage End Date [employer] [facility] [address] [place] [address] [phone] [id number] DOUG BARDALES Self - patient is the insured 2 [employer] [facility] [address] [address] [place] [address] [phone] [id number] BARDALESDOUG Self - patient is the insured 3 DENTAL [employer] [facility] [address] [place] [address] [id number] DOUG BARDALES Self - patient is the insured 1 MEDICAID [place] [address] [place] [address] [id number] DOUG BARDALES Self - patient is the insured 4
--- OUTSIDE RECORDS SUMMARY | 2025-07-03 11:15 | XMS_ITS | CCD ---
Author Organization 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 Name Role Phone Kvng Monreal MD Primary Care Provider MARGARITA CARRANZA Attending Unavailable LISA PHILLIPS Attending Unavailable LISA PHILLIPS Referring Unavailable LISA PHILLIPS Attending Unavailable MITCHELL BENITES Attending Unavailable MITCHELL BENITES Attending Unavailable ELENA COLUNGA Attending Unavailable Royal Fuentes Admitting Unavailab Royal Drake Attending Unavailab Kvng Brumfield Primary Care Unavailable Allergies Allergy Classification Reported Allergen(s) Allergy Type Date of Onset Reaction(s) Facility (7 sources) Latex Propensity to adverse reactions 6 Hives [facility] (7 sources) Mold Extract Drug Allergy 6 Hives, Rash [facility] (3 sources) Stonewall Flavor; Translations: [STRAWBERRY FLAVOR] Propensity to adverse reactions 6 Hives, Swelling [facility] (5 sources) Stonewall Flavoring Agent (Non-Screening) Propensity to adverse reactions 6 Hives, Swelling [facility] (1 source) Gluten; Translations: [GLUTEN] Propensity to adverse reactions to drug (disorder) 5 [facility] Repository (1 source) Lactose; Translations: [LACTOSE] Drug Allergy 5 [facility] Repository (1 source) Mold Extract; Translations: [MOLD] Drug Allergy 6 [facility] Repository (1 source) natural latex rubber; Translations: [LATEX, NATURAL RUBBER] Propensity to adverse reactions to drug (disorder) 6 [facility] Repository (1 source) Soy protein; Translations: [SOY] Propensity to adverse reactions to drug (disorder) 5 [facility] Repository Medications Current Medications Medication Drug Class(es) Dates Sig (Normalized) Sig (Original) azelastine hydrochloride 0.137 mg/actuat metered dose nasal spray (2 sources) Histamine-1 Receptor Antagonist Start: 02-08-2025 End: 02-08-2026 take 2 spray(s) nasal route in the morning azelastine (Astelin) 0.1 % nasal spray Indications: Chronic rhinitis Administer 2 sprays into each nostril in the morning and 2 sprays before bedtime. Use in each nostril as directed. 90 mL 3 02/08/2025 02/08/2026 Active UNABLE TO FIND (7 sources) UNABLE TO FIND Med Name: bravenly Active Problems Active Problems Problem Classification Problem Date Documented Da te Episodic/Chronic Administrative/social admission (2 sources) Patient encounter status; Translations: [Person consulting for explanation of examination or test findings] 10-10-2024 Episodic Contraceptive and procreative management (6 sources) Sterilization requested; Translations: [Encounter for sterilization] 08-08-2024 Episodic Hypertension with complications and secondary hypertension (2 sources) Hypertensive heart disease without heart failure; Translations: [Hypertensive heart disease without heart failure] Onset: 03-29-2025 Chronic Menstrual disorders (4 sources) Dysmenorrhea; Translations: [Dysmenorrhea, unspecified] 08-09-2024 Chronic Mood disorders (2 sources) Premenstrual dysphoric disorder; Translations: [Premenstrual dysphoric disorder] 08-09-2024 Chronic Other circulatory disease (2 sources) Orthostatic hypotension; Translations: [Orthostatic hypotension] Onset: 06-08-2025 Episodic Other gastrointestinal disorders (2 sources) Abdominal wind pain; Translations: [Gas pain] 02-08-2025 Episodic Other upper respiratory disease (2 sources) Chronic rhinitis; Translations: [Chronic rhinitis] 02-08-2025 Chronic Substance-related disorders (2 sources) Marijuana user; Translations: [Cannabis use, unspecified, uncomplicated] 08-09-2024 Episodic Syncope (2 sources) Syncope and collapse; Translations: [Syncope and collapse] Onset: 06-08-2025 Episodic Past or Other Problems Problem Classification Problem Date Documented Da te Episodic/Chronic Cardiac dysrhythmias (2 sources) Palpitations; Translations: [Palpitations] Onset: 01-27-2025 Episodic Conditions associated with dizziness or vertigo (2 sources) Dizziness and giddiness; Translations: [Dizziness and giddiness] Onset: 01-27-2025 Episodic Other lower respiratory disease (2 sources) Other forms of dyspnea; Translations: [Other forms of dyspnea] Onset: 01-27-2025 Episodic Results Test Name Value Interpretation Reference Range Facil ity 36on 06-13-2025 36 Pt called stating she had a good experience while previously taking Truvy (weight and BP were manageable), pt states she stopped the med due to a change in ingredients, after which symptoms returned (numbness in feet, elevated BP, and presyncope), pt states she is contemplating restarting the med and would like advice from Devika Colunga on whether she should proceed; advised pt to contact PCP/TOPOGRAPHICAL SURVEYOR (Shantel Delgado), pt states she did but did not receive much feedback. Please advise. [facility] Telemedicineon 06-08-2025 Telemedicine [id number] Raymon Vasquez 1990 F Date Provider Department Center 06/08/2025 ELENA [facility] CARD [place] HeartVAS Family History Problem Relation Age of Onset Cancer Mother Heart attack Father Heart attack Paternal Grandmother Family Status - Relation Status Age at Mother Father Alive Paternal Grandmother Level of Service:84200 AL OFFICE/OUTPATIENT ESTABLISHED MOD MDM 30 MIN (95) Reason for Visit and Comments: Telehealth Audio/video Visit [871] [facility] 36on 05-08-2025 36 Pt called stating she was not pleased w/POTS diagnosis given by Dr. Angie Benites; pt request to schedule appt w/ Dr. Joshi, informed pt no appt available to offer for scheduling, advised pt she can schedule w/ Devika Colunga; pt scheduled on 06/08/2025 2:00pm w/ Devika Colunga, email address updated/verified, [employer] support phone number given for further assistance if needed. [facility] Telephoneon 05-08-2025 Telephone [id number] Raymon Vasquez 1990 F Date Provider Department Center 05/08/2025 [id number] [facility] CARD [place] HeartVAS Family History Problem Relation Age of Onset Cancer Mother Heart attack Father Heart attack Paternal Grandmother Family Status - Relation Status Age at Mother Father Alive Paternal Grandmother Normal [facility] 36on 05-05-2025 36 patric Benites MD to Carmela Biggs MA 04/27/25 10:25 PM She can try pyridostigmine 60 mg TID, let her try it first time when she is off. Also schedule her to see Dr Bates at [facility] [place] 03/30/25 3:39 PM Note Phone call from patient. Patient states the metoprolol you prescribed for her is not a good medication for her, patient states she took the metoprolol last night before she went to bed an it kept her up all night. Patient states she is at work at [employer] today and has to go out in the parking lot to get carts and she feels its not safe for to go out into the parking lot to get carts due to the dizziness the metoprolol is causing her. Patient also states its making her nauseated and she keeps losing color in here face. Patient states with her ADHD and Autism, OCD, medications have the opposite effect on her. Patient was advised to discontinue medication until we hear back from . BP 9:30am 03/29/2025 144/82 BP 615am 03/30/2025 128/76 Please advise. 03/30/25 8:59 AM Carmela Biggs MA routed this conversation to MD Carmela Cardona MA [place] 03/30/25 8:59 AM Note Patient called stating the metoprolol kept her awake all night. She says it's not neurodivergent friendly . Says her ADHD and the medicine didn't mix and she was up all night staring at the wall . C/o dizziness that won't subside . Said she took her BP but wasn't able to tell me what it was. Patient told me she did her homework and doesn't think metoprolol is for people with POTS. Would you like to try something else for her? Please advise. Thanks. [facility] for patient to return call. [facility] Telephoneon 05-05-2025 Telephone [id number] Raymon Vasquez A 1990 F Date Provider Department Center 05/05/2025 CHLOE MEJIA Family History Problem Relation Age of Onset Cancer Mother Heart attack Father Heart attack Paternal Grandmother Family Status - Relation Status Age at Mother Father Alive Paternal Grandmother [facility] 36on 03-30-2025 36 Phone call from patient. Patient states the metoprolol you prescribed for her is not a good medication for her, patient states she took the metoprolol last night before she went to bed an it kept her up all night. Patient states she is at work at [employer] today and has to go out in the parking lot to get carts and she feels its not safe for to go out into the parking lot to get carts due to the dizziness the metoprolol is causing her. Patient also states its making her nauseated and she keeps losing color in here face. Patient states with her ADHD and Autism, OCD, medications have the opposite effect on her. Patient was advised to discontinue medication until we hear back from . BP 9:30am 03/29/2025 144/82 BP 615am 03/30/2025 128/76 Please advise. [facility] 36 Patient called stating the metoprolol kept her awake all night. She says it's not neurodivergent friendly . Says her ADHD and the medicine didn't mix and she was up all night staring at the wall . C/o dizziness that won't subside . Said she took her BP but wasn't able to tell me what it was. Patient told me she did her homework and doesn't think metoprolol is for people with POTS. Would you like to try something else for her? Please advise. Thanks. [facility] Office Visiton 03-29-2025 Follow-up visit [id number] Raymon Vasquez A 1990 F Date Provider Department Center 03/29/2025 [id number] ROBERTSON Family History Problem Relation Age of Onset Cancer Mother Heart attack Father Heart attack Paternal Grandmother Family Status - Relation Status Age at Mother Father Alive Paternal Grandmother Level of Service:30288 AL OFFICE/OUTPATIENT ESTABLISHED MOD MDM 30 MIN Reason for Visit and Comments: 6 week follow up [Other] Holter monitor and ECHO results [Other] Normal [facility] Results Follow-Upon 03-12-20 Results Follow-Up [id number] Raymon Vasquez A 1990 F Date Provider Department Center 03/12/2025 MITCHELL ESCALERA CARLOS [place] Family History Problem Relation Age of Onset Cancer Mother Heart attack Father Heart attack Paternal Grandmother Family Status - Relation Status Age at Mother Father Alive Paternal Grandmother Normal [facility] Orders Onlyon 02-28-2025 Orders Only [id number] Raymon Vasquez A 1990 F Date Provider Department Center 02/28/2025 [id number], [facility] CARLOS [place] Family History Problem Relation Age of Onset Heart attack Father Heart attack Paternal Grandmother Family Status - Relation Status Age at Father Paternal Grandmother Normal [facility] Office Visiton 01-27-2025 Follow-up visit [id number] Raymon Vasquez A 1990 F Date Provider Department Center 01/27/2025 MITCHELL ESCALERA CARLOS [place] Family History Problem Relation Age of Onset Heart attack Father Heart attack Paternal Grandmother Family Status - Relation Status Age at Father Paternal Grandmother Level of Service:20595 AL OFFICE/OUTPATIENT NEW MODERATE MDM 45 MINUTES Reason for Visit and Comments: Hypertension [911079] - Says she refuses to take any prescriptions drugs of any kind. Says she only gets cardiac symptoms a few days prior and during her menstrual cycle. She's interested in testing for possible POTS. She gets blood pooling in her legs, but no edema. Denies syncope. Dizziness [] Palpitations [] Normal [facility] Outside Recordson 06-14-2024 Outside Records [id number] [facility] Vital Signs Date Time Vital Sign Value Performing Clinician Lewis fuentes 02-08-2025 09:41-0400 Body height 152.4 cm Margarita Carranza MD Work Phone: [facility] 02-08-2025 09:41-0400 Body mass index (BMI) [Ratio] 34.76 kg/m2 Margarita Carranza MD Work Phone: [facility] 02-08-2025 09:41-0400 Body weight 80.74 kg Margarita Carranza MD Work Phone: [facility] 10-12-2024 10:12-0500 Body mass index (BMI) [Ratio] 35.12 kg/m2 Lisa Nataprawira DO Work Phone: [facility] 10-12-2024 10:12-0500 Body weight 87.09 kg Lisa Nataprawira DO Work Phone: [facility] 10-12-2024 10:12-0500 Diastolic blood pressure 84 mm[Hg] Lisa Nataprawira DO Work Phone: [facility] 10-12-2024 10:12-0500 Systolic blood pressure 150 mm[Hg] Lisa Nataprawira DO Work Phone: [facility] 08-09-2024 10:52-0500 Body mass index (BMI) [Ratio] 34.75 kg/m2 Lisa Nataprawira DO Work Phone: [facility] 08-09-2024 10:52-0500 Body weight 86.18 kg Lisa Nataprawira DO Work Phone: [facility] 08-09-2024 10:52-0500 Diastolic blood pressure 82 mm[Hg] Lisa Nataprawira DO Work Phone: [facility] 08-09-2024 10:52-0500 Systolic blood pressure 146 mm[Hg] Lisa Nataprawira DO Work Phone: [facility] Healthcare Encounters Encounter Date Encounter Type Care Provider Facility Start: 06-27-2025 ambulatory Royal Paiz acility:[facility] Start: 06-08-2025 End: 06-08-2025 ambulatory ELENA [facility] Start: 03-29-2025 End: 03-29-2025 ambulatory [facility] Start: 02-08-2025 End: 02-08-2025 Jamar Carranza MD Work Phone: [facility] Start: 02-08-2025 End: 02-08-2025 Bamboo darnell Carranza MD Work Phone: [facility] Start: 02-08-2025 End: 02-08-2025 Office outpatient new 30 minutes Margarita Carranza MD Work Phone: [facility] Comment on above: Gas pain (Primary Dx ); Chronic rhinitis Start: 02-08-2025 End: 02-08-2025 ambulatory MARGARITA CARRANZA Not Available Start: 01-27-2025 End: 01-27-2025 ambulatory [facility] Start: 10-12-2024 End: 10-12-2024 Office outpatient visit 15 minutes Lisa Phillips DO Work Phone: [facility] Comment on above: Encounter to discuss test results (Primary Dx); Dysmenorrhea; Family planning counseling Start: 10-12-2024 End: 10-12-2024 ambulatory LISA PHILLIPS Not Available Start: 08-09-2024 End: 08-09-2024 ambulatory LISA PHILLIPS Not Available Start: 08-09-2024 End: 08-09-2024 Patient encounter status Lisa Phillips DO Work Phone: [facility] Start: 08-09-2024 End: 08-09-2024 Periodic preventive med est patient 18-39 yrs Lisa Phillips DO Work Phone: [facility] Comment on above: Encounter for gyneco logical examination without abnormal finding (Primary Dx); Dysmenorrhea; PMDD (premenstrual dysphoric disorder) (CMS/[facility]); Request for sterilization; Family planning counseling; Marijuana use Plan of Treatment Date Care Activity Detail Author Start: 08-16-2025 End: 08-16-2025 Patient encounter procedure 08/16/2025 1:15 PM EST Office Visit [facility] [address] [address] Lisa Phillips DO [address] [facility] D [address] [address] [facility] Start: 02-08-2025 End: 02-08-2025 Patient encounter procedure 02/08/2025 10:00 AM EDT Office Visit [facility] [address] [place] [id number] Margarita Carranza MD [address] [place] [address] [place] [id number] Arrived [facility] Comment on above: Arrived Start: 09-14-2024 End: 09-14-2024 Patient encounter procedure 09/14/2024 10:00 AM EST Office Visit [facility] [address] [address] Lisa Phillips DO [address] [address] [facility] Start: 09-14-2024 End: 09-14-2024 Professional / ancillary services management 09/14/2024 9:00 AM EST Ancillary Procedure [facility] [address] [address] [facility] Payers Date Payer Category Payer Self-pay 2023 Medicare (Managed Care) ERIN PARRA [id number] 2023 Medicare [id number] 2019 Private Health Insurance [facility] [id number] 2019 Private Health Insurance [id number] 1990 Unknown [id number] 1990 Unknown [id number] 1990 Unknown [id number] [id number] 1990 Unknown [id number] Unknown [id number] Social History Date Type Detail Facility Start: 08-08-2024 [facility] Start: 08-08-2024 Tobacco use and exposure Smoke less tobacco non-user [facility] Start: 08-09-2024 End: 02-08-2025 Alcoholic beverage intake Ex-drinker (finding) [facility] Start: 08-09-2024 End: 02-08-2025 History of Social function [facility] Start: 08-09-2024 End: 02-08-2025 Tobacco use panel [facility] Healthcare Start: 1990 Sex assigned at Not on file [facility] Progress note 06-08-2025 Note Date & Type Note Facility 06-08-2025 Note Raymon is a 34 year old female referred to Dr Flo Joshi and the [facility] in the Heart and Vascular Center at the [facility] for an evaluation of postural orthostatic tachycardia syndrome or POTS. Previous evaluation by Dr. Johana Benites, [facility] cardiology. Echocardiogram reviewed outside facility without valvulopathy aortic valve. And normal EF.3-day Holter monitor as reviewed below demonstrating no significant arrhythmia. Predominant sinus rhythm. Average heart rate 71 bpm and max heart rate 134 bpm Telemedicine visit. Patient located in [facility]. Past medical history: Post Term . Anxiety/ OCD/ Depression/PTSD Follows with therapist ADHD Tourette's/ possible seizure or Tics Autism Graduated high school 2010. 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 History of presenting illness: Near syncope with activity as child and the last 20 years. Thought normal growing up . Despite the orthostatic intolerance episodes, pushed through this . Never stayed home from school. . 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 On SS disability due to mental health dx. In twenties, healthy. Gardens, cacti, succulents, flower bed, remodeled house. In a good state good health. Began to experience feeling weird seated, feet turning blue. Looked it up on [employer] - Smartphone RFID. Blood pooling This is connected to POTS . Researched this and saw a connection with mental health dx and POTS. Out of shower: skin numb and crawling. [place], sensitive. Near syncope: sent home early from work, felt faint. Few days prior to menses. Last week she reportedly had a syncope episode. [place] dissociated, seated. Closed eyes. LOC 5 minutes. Partner tried to wake up. Saw cardiology: fluids, compression. 270cc daily salt Benign borderline hypertensive heart disease without CHF: (genetic- parents, sister) PCP started HTCZ. Metoprolol caused dizziness, near syncope Dyslipidemia Review of Systems Cardiovascular: Positive for near-syncope and syncope. Negative for dyspnea on exertion, irregular heartbeat and palpitations. Respiratory: Negative. Endocrine: Positive for heat intolerance. Skin: Negative. Musculoskeletal: Negative. Gastrointestinal: Positive for bloating. Gluten intolerant, lactose intolerant Genitourinary: Negative. Neurological: Positive for dizziness, light-headedness and vertigo. Negative for seizures, sensory change and tremors. Psychiatric/Behavioral: Positive for depression. Negative for substance abuse and suicidal ideas. The patient is nervous/anxious. Objective Constitutional: Appearance: Healthy appearance. Not in distress. Neurological: General: No focal deficit present. Mental Status: Alert and oriented to person, place and time. Lab Review: Assessment/Plan The primary encounter diagnosis was Syncope, unspecified syncope type. Diagnoses of Orthostatic intolerance and Benign hypertensive heart disease without congestive heart failure were also pertinent to this visit. Problem List Items Addressed This Visit Benign hypertensive heart disease without congestive heart failure Orthostatic intolerance Other Visit Diagnoses Syncope, unspecified syncope type - Primary Relevant Orders Tilt Table Catecholamines, fractionated, plasma Metanephrines Plasma Cortisol PTH, intact Thyroid peroxidase antibody Thyroid stimulating immunoglobulin Date of Telehealth Visit: 06/08/2025 Chief Complaint Patient presents with Telehealth Audio/video Visit The visit was conducted [id number] with the use of audio and video technology using HIPAA approved My [employer] between patient and the provider for a virtual visit. Verbal consent to provide and bill this service was obtained on: 06/08/25 Patient Location: Patient Home I spent 30 minutes of total time on the day of the visit. This time was spent preparing for the visit, obtaining and reviewing any outside history/data, taking a history, performing an exam/evaluation, counseling and educating patient/family about the diagnosis and plan, performing medical decision making, referring to and communicating with other health care referrals, independently interpreting results and documenting in the EMR, and coordinating care. Please see the additional documentation in this note for specific details. 1. Syncope, unspecified syncope type (Primary) - Tilt Table; Future - Catecholamines, fractionated, plasma; Future - Metanephrines Plasma; Future - Cortisol; Future - PTH, intact; Future - Thyroid peroxidase antibody; Future - Thyroid stimulating immunoglobulin; Future 2. Orthostatic intolerance Fluids. Compression. Discussed tilt. 3. Benign hypertensive heart disease without congestive heart failure Chronic and stable. Continue hydrochlorothiazide. RTC. Elena Colunga APRN PhD [facility] Nurse Practitioner Division of C (more content not included)... [facility] Progress note 03-29-2025 Note Date & Type Note Facility 03-29-2025 Note [facility] Note Reason for cardiology follow-up on palpitations and dizziness HPI: 03/29/2025 The patient is here today for follow-up visit. She states that she continues to have symptoms of palpitation and dizziness. 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 She has been wearing the compression stocking and increasing her fluid intake however she could not cut down on the salt because that made her dizzy and kind of nauseated and she felt better when she ate salty food. She has been checking her blood pressure and many times was on the high side. She reports that when she tries to walk to exercise she feels little dizzy but she never checked her blood pressure at that time. She denies chest pain. She admits shortness of breath with overexertion but again she works 8 hours shift at [employer] [place] and she walks all the time and push carts without needing to stop. 01/27/2025 Raymon Vasquez is a 34 y.o. female without prior cardiac history. She has history of hyperlipidemia. She reports that sometimes her blood pressure is borderline elevated, no history of diabetes mellitus, no history of nicotine use. She has history of anxiety. She reports that about 2 to 3 years ago she started having events of fluttering associated with dizziness particularly when she is working out and sometimes when she is standing up when it is also associated with feeling tired. She never had syncope. She reports that she is physically active and she exercises every day going up and down stairs at her home for 15 minutes twice a day but this is usually associated with the above-mentioned symptoms. Also she feels as if the blood is pooling in her legs and she was told that when she exercises the back of her legs appear red. She always also feels thirsty no matter how much water she drinks. She reports also the above symptoms a few days prior and during her menstrual cycle. She is concerned that she might have POTS. She denies any chest discomfort at rest or with exertion. She reports shortness of breath with activity. She denies orthopnea or paroxysmal nocturnal dyspnea. She denies legs edema or legs discomfort with exertion. She denies snoring but she reports sleep talking. She is not aware that she stops breathing. She feels sometimes tired during the daytime but usually not sleepy. She never had COVID infection and she did not receive the vaccine. She states that she does not drink any caffeine because she has ADHD and caffeine makes her feel sleepy. She drinks mushroom coffee in the morning. She drinks a lot of water. She never smoked cigarettes or cigars. She smokes weed for pain control. She used to drink alcohol about 1 bottle of wine every 2 to 3 weeks but she stopped it altogether 2 to 3 years ago. She denies any illicit drugs ROS: All systems were reviewed and they were negative except for the positive findings noted above in the history Past Medical History She has a past medical history of ADHD, Autism, Hypertension, OCD (obsessive compulsive disorder), PMDD (premenstrual dysphoric disorder), and Tourette's disease. Surgical History She has no past surgical history on file. Social History She reports that she has never smoked. She has never used smokeless tobacco. She reports that she does not currently use alcohol. She reports current drug use. Drug: Marijuana. Family History Family History Problem Relation Name Age of Onset Cancer Mother Heart attack Father Heart attack Paternal Grandmother Allergies Latex, natural rubber; Stonewall flavor; and Mold Medications No current outpatient medications on file. Last Recorded Vitals Visit Vitals BP 152/85 (BP Location: Right arm, Patient Position: Sitting) Pulse 108 Ht 1.524 m (5') Wt 89.4 kg (197 lb) SpO2 100% BMI 38.47 kg/m??? Smoking Status Never BSA 1.95 m??? Orthostatic vitals: Last visit 01/27/2025 Lying position blood pressure 138/78 with heart rate 102 Sitting position blood pressure 130/84 with heart rate of 94 Standing position blood pressure 140/90 and heart rate 102 Physical Examination: GENERAL: alert and oriented x3, well developed, in no acute distress. HEAD: atraumatic, normocephalic. EYES: MYNOR, EOMI. NECK: trachea midline, no JVD present, no carotid bruits present. CARDIAC: S1, S2 present. RRR. No murmur, rubs, or gallops. RESPIRATORY: CTAB, no increased effort of breathing, no rales, rhonchi, or wheezing. ABDOMEN: soft, nontender, nondistended. EXTREMITIES: no lower extremity edema, peripheral pulses are 2+ bilaterally. No rash/skin discoloration present. NEURO: strength/sensation equal and symmetric in bilateral upper and lower extremities. PSYCH: appropriate mood, affect, and judgement. Labs: 01/07/2025 White blood count 5.5, hemoglob (more content not included)... [facility] History of Present illness Narrative 02-08-2025 Margarita Carranza MD - 02/08/2025 10:00 AM EDT Note Date & Type Note Facility 02-08-2025 History of Presen t illness Narrative Raymon Vasquez is a very pleasant 34 y.o. year old female who comes to the office today with the chief complaint of concern about food allergies. Referred by Dr. Nilsa Delgado When she was a child she was told she had food intolerance. She feels that she is gluten and lactose intolerant. She feels she is also intolerant of wheat and possibly soy. She feels that artificial food colorings will tend to certified caregiver her a rash which is red raised and itchy. She had no symptoms of anaphylaxis with this episode. She feels red food dye will tend to trigger her the most. She has no asthma symptoms. She is currently avoiding gluten, wheat, dairy and soy. When she eats soy she will feel weird like something is not right. She will feel queasy and off. With dairy she will have loose stools and gas pain and bloating. She has spring and fall and fall symptoms of nasal airway obstruction rhinorrhea and sneeze. EXAM The patient appears comfortable in the office today. Lungs are clear to auscultation bilaterally. The oral mucosa is pink and healthy without any lesions or ulcers. The palate elevates in the midline. The nasal mucosa is pink and healthy. There is no epistaxis mucopus or nasal polyposis noted. The nasal septum is approximately in the midline. The skin is clear of any lesions, excoriations, or erythema. Skin testing in the office today performed under direct physician supervision is negative for milk wheat soy and multiple food colorings in the setting of a positive histamine control. IMPRESSION: Chronic rhinitis - Given her persistent sinus symptoms we agreed she would try azelastine nasal spray to [employer] in [place]. I reassured her that food allergy is unlikely to be contributing to her rhinitis symptoms. Gas pain - I suggested to the patient that since food skin testing is negative that food allergy is unlikely to be causing these symptoms. I suggested that in order to rule out food intolerance that the patient try a diet diary where the write down their meals 3 times a day along with their symptoms 3 times a day and see if they can find a correlation between specific foods and specific symptoms. If this is not beneficial then I suggested they try the FODMAP diet and discussed this with the patient in detail and provided an online reference with instructions on how to perform this. Follow-up is arranged on an as needed basis. documented in this encounter [facility] Progress note 01-27-2025 Note Date & Type Note Facility 01-27-2025 Note [facility] Note Reason for cardiology consult: Palpitations and dizziness Chief Complaint: Palpitations and dizziness HPI: Raymon Vasquez is a 34 y.o. female without prior cardiac history. She has history of hyperlipidemia. She reports that sometimes her blood pressure is borderline elevated, no history of diabetes mellitus, no history of nicotine use. She has history of anxiety. She reports that about 2 to 3 years ago she started having events of fluttering associated with dizziness particularly when she is working out and sometimes when she is standing up when it is also associated with feeling tired. She never had syncope. She reports that she is physically active and she exercises every day going up and down stairs at her home for 15 minutes twice a day but this is usually associated with the above-mentioned symptoms. Also she feels as if the blood is pooling in her legs and she was told that when she exercises the back of her legs appear red. She always also feels thirsty no matter how much water she drinks. She reports also the above symptoms a few days prior and during her menstrual cycle. She is concerned that she might have POTS. She denies any chest discomfort at rest or with exertion. She reports shortness of breath with activity. She denies orthopnea or paroxysmal nocturnal dyspnea. She denies legs edema or legs discomfort with exertion. She denies snoring but she reports sleep talking. She is not aware that she stops breathing. She feels sometimes tired during the daytime but usually not sleepy. She never had COVID infection and she did not receive the vaccine. She states that she does not drink any caffeine because she has ADHD and caffeine makes her feel sleepy. She drinks mushroom coffee in the morning. She drinks a lot of water. She never smoked cigarettes or cigars. She smokes weed for pain control. She used to drink alcohol about 1 bottle of wine every 2 to 3 weeks but she stopped it altogether 2 to 3 years ago. She denies any illicit drugs Cardiology ROS: GENERAL: Denies fever, chills, night sweats, weight loss. HEENT: Denies changes in vision, photophobia, changes in hearing, epistaxis, oral bleeding. CARDIOVASCULAR: Reports dizziness and palpitations as described above. She reports exertional dyspnea. Denies chest pain, orthopnea/PND, lower extremity edema. RESPIRATORY: Denies coughing, wheezing GI: Denies abdominal pain, nausea/vomiting, heartburn, melena/hematochezia. RENAL: Denies dysuria, hematuria, flank pain. MSK: Denies muscle weakness/pain, arthralgias/joint pain. NEUROLOGIC: Denies LOC, weakness, numbness, headaches. SKIN: Denies abnormal rashes or bleeding. PSYCH: Denies significant anxiety, depression, sleep disturbances. Past Medical History She has a past medical history of ADHD, Autism, Hypertension, OCD (obsessive compulsive disorder), PMDD (premenstrual dysphoric disorder), and Tourette's disease. Surgical History She has no past surgical history on file. Social History She reports that she has never smoked. She has never used smokeless tobacco. She reports that she does not currently use alcohol. She reports current drug use. Drug: Marijuana. Family History Family History Problem Relation Name Age of Onset Heart attack Father Heart attack Paternal Grandmother Allergies Latex, natural rubber; Stonewall flavor; and Mold Medications No current outpatient medications on file. Last Recorded Vitals Visit Vitals BP 140/90 (BP Location: Right arm, Patient Position: Standing) Pulse 102 Ht 1.524 m (5') Wt 86.6 kg (191 lb) SpO2 99% BMI 37.30 kg/m??? Smoking Status Never BSA 1.91 m??? Orthostatic vitals: Lying position blood pressure 138/78 with heart rate 102 Sitting position blood pressure 130/84 with heart rate of 94 Standing position blood pressure 140/90 and heart rate 102 Physical Examination: GENERAL: alert and oriented x3, well developed, in no acute distress. HEAD: atraumatic, normocephalic. EYES: MYNOR, EOMI. NECK: trachea midline, no JVD present, no carotid bruits present. CARDIAC: S1, S2 present. RRR. No murmur, rubs, or gallops. RESPIRATORY: CTAB, no increased effort of breathing, no rales, rhonchi, or wheezing. ABDOMEN: soft, nontender, nondistended. EXTREMITIES: no lower extremity edema, peripheral pulses are 2+ bilaterally. No rash/skin discoloration present. NEURO: strength/sensation equal and symmetric in bilateral upper and lower extremities. PSYCH: appropriate mood, affect, and judgement. Labs: 01/07/2025 White blood count 5.5, hemoglobin 13.1, hematocrit 39.6, platelets 315 Sodium 139, potassium 4, BUN 9, creatinine 0.6, GFR above 60, glucose 98 HbA1c 5.4% Calcium 9 Iron 77 Total bilirubin 0.4, AST 14, ALT 20, alk phos 80, total protein 7.6, albumin 3.9 Triglyceride 54, cholesterol 196, LDL 130, HDL 55 TSH 1.108, T48.9, free T33.08 La (more content not included)... [facility] History of Present illness Narrative 10-12-2024 Lisa Phillips, - 10/12/2024 11:00 AM EST Note Date & Type Note Facility 10-12-2024 History of Presen t illness Narrative Images from the original note were not included. Subjective Raymon Vasquez is a 34 y.o. female HPI Chief Complaint Patient presents with Follow-up Patient here for a follow up after pelvic ultrasound due to painful cramping. Denies other problems. Patient reports that her grandmother recently just and she is reconsidering her decision on a tubal. LMP 09/11/24 Pelvic ultrasound revealed anteverted uterus measuring [id number] with normal contour and has homogeneous myometrial echotexture. Endometrium normal in contour and thickness of 14.8mm with no overt submucosal fibroids or polyps. Right ovary measuring [id number] with no cysts identified. Left ovary measuring [id number] with no cysts identified. No free fluid in the pelvis and good blood profusion noted to both ovaries Past Medical History: Diagnosis Date PTSD (post-traumatic stress disorder) ([facility]) Past Surgical History: Procedure Laterality Date WISDOM TOOTH EXTRACTION No family history on file. Social History Tobacco Use Smoking status: Never Smokeless tobacco: Never Vaping Use Vaping status: Never Used Substance Use Topics Alcohol use: Not Currently Drug use: Yes Types: Marijuana OB History Para Term AB Living 0 0 0 0 0 0 SAB IAB Ectopic Multiple Live Births 0 0 0 0 0 Allergies Allergen Reactions Latex Hives Stonewall Flavoring Agent (Non-Screening) Hives and Swelling Throat swells Molds & Smuts Hives and Rash Dust and mold Current Outpatient Medications on File Prior to Visit Medication Sig Dispense Refill UNABLE TO FIND Med Name: bravenly No current facility-administered medications on file prior to visit. Review of Systems All other systems reviewed and are negative. Objective BP 150/84 Wt 192 lb LMP 09/10/2024 BMI 35.12 kg/m Physical Exam Constitutional: Appearance: Normal appearance. Neurological: Mental Status: She is alert. Skin: General: Skin is warm and dry. Psychiatric: Mood and Affect: Mood normal. Assessment/Plan 1. Encounter to discuss test results (Primary) Pelvic ultrasound findings discussed. Treatment/management options discussed. 2. Dysmenorrhea Patient declined any medical treatment at this time 3. Family planning counseling Patient states will put her interest in permanent sterilization on hold for now. Patient to contact the office with any concerns/questions documented in this encounter [facility] History of Present illness Narrative 08-09-2024 Lisa Phillips DO - 08/09/2024 10:45 AM EST Note Date & Type Note Facility 08-09-2024 History of Presen t illness Narrative Images from the original note were not included. Lisa Phillips DO Obstetrics and Gynecology Name: Raymon Vasquez Date/Time of Service:08/09/2024 11:39 AM :1990 Age: 33 y.o. Subjective Raymon Vasquez is a 33 y.o. female who is here for a routine exam. Gynecologic Exam (Patient here for a yearly. Would like to discuss bilateral salpingectomy. Patient having monthly periods lasting 3-4 days with light bleeding and severe cramping to the point she calls off work. 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 Denies other problems. Patient reports that she lost 20 # does not use anything for birthcontrol. Patient also reports mood swings, feeling sadness to the point that interrupting her daily activities) Control Contraception: none. LMP: Patient's last menstrual period was 07/13/2024. Last Mammogram No results found for this or any previous visit. Current Outpatient Medications on File Prior to Visit Medication Sig Dispense Refill UNABLE TO FIND Med Name: von No current facility-administered medications on file prior to visit. Past Medical History: Diagnosis Date PTSD (post-traumatic stress disorder) ([facility]) Past Surgical History: Procedure Laterality Date WISDOM TOOTH EXTRACTION No family history on file. Social History Tobacco Use Smoking status: Never Smokeless tobacco: Never Vaping Use Vaping status: Never Used Substance Use Topics Alcohol use: Not Currently Drug use: Yes Types: Marijuana OB History Para Term AB Living 0 0 0 0 0 0 SAB IAB Ectopic Multiple Live Births 0 0 0 0 0 Allergies Allergen Reactions Latex Hives Stonewall Flavor Hives and Swelling Throat swells Molds & Smuts Hives and Rash Dust and mold Review of Systems Constitutional: Negative. Respiratory: Negative. Cardiovascular: Negative. Gastrointestinal: Negative. Musculoskeletal: Negative. Skin: Negative. Neurological: Negative. Endocrine: Negative. Objective BP 146/82 Wt 190 lb LMP 07/13/2024 BMI 34.75 kg/m Body mass index is 34.75 kg/m . Physical Exam Genitourinary: Urethral meatus normal. No lesions in the vagina. Right Labia: No lesions. Left Labia: No lesions. No vaginal discharge. Right Adnexa: not tender and no mass present. Left Adnexa: not tender and no mass present. No cervical lesion. Uterus is not tender. Uterus is anteverted. Bladder is not tender. Breasts: Right: No mass, nipple discharge, skin change or tenderness. Left: No mass, nipple discharge, skin change or tenderness. HENT: Head: Normocephalic and atraumatic. Mouth/Throat: Mouth: Mucous membranes are moist. Cardiovascular: Rate and Rhythm: Normal rate and regular rhythm. Pulmonary: Effort: Pulmonary effort is normal. Breath sounds: Normal breath sounds. Abdominal: General: Bowel sounds are normal. Palpations: Abdomen is soft. Musculoskeletal: General: No tenderness. Cervical back: Neck supple. Neurological: Mental Status: She is alert and oriented to person, place, and time. Skin: General: Skin is warm and dry. Psychiatric: Mood and Affect: Mood normal. Vitals and nursing note reviewed. Assessment/Plan 1. Encounter for gynecological examination without abnormal finding (Primary) Breast and pelvic exam performed. Discussed findings. Patient to contact the office with any changes to her gynecological condition. 2. Dysmenorrhea Pelvic ultrasound to be scheduled and will discuss findings at the next office visit 3. PMDD (premenstrual dysphoric disorder) ([facility]) Discussed treatment/management with hormonal treatment. Patient declined hormonal treatment at this time 4. Request for sterilization Discussed Laparoscopic bilateral salpingectomy procedure. Risks/benefits/alternatives discussed. Patient voiced interest in permanent sterilization for her contraception. Will schedule accordingly 5. Family planning counseling 6. Marijuana use ICD-10-CM 1. Encounter for gynecological examination without abnormal finding Z01.419 2. Dysmenorrhea N94.6 3. PMDD (premenstrual dysphoric disorder) ([facility]) F32.81 4. Request for sterilization Z30.2 5. Family planning counseling Z30.09 6. Marijuana use F12.90 Follow up first available, for pelvic us and OV . Lisa Phillips DO 08/09/2024 11:39 AM documented in this encounter [facility] Evaluation note Note Date & Type Note Facility Evaluation note Diagnosis Encounter for gynecological examination without abnormal finding- Primary Dysmenorrhea PMDD (premenstrual dysphoric disorder) ([facility]) Premenstrual tension syndromes Request for sterilization Family planning counseling Other general counseling and advice for contraceptive management Marijuana use documented in this encounter [facility] Evaluation note Note Date & Type Note Facility Evaluation note Diagnosis Encounter to discuss test results- Primary Other specified counseling Dysmenorrhea Family planning counseling Other general counseling and advice for contraceptive management documented in this encounter [facility] Evaluation note Note Date & Type Note Facility Evaluation note Diagnosis Gas pain- Primary Flatulence, eructation, and gas pain Chronic rhinitis documented in this encounter [facility] Summary Purpose Family History No Family History Records FoundNo Family History Records FoundNo Family History Records FoundNo Family History Records Found Advance Directives No Advanced Directives Records FoundNo Advanced Directives Records FoundNo Advanced Directives Records FoundNo Advanced Directives Records Found Additional Source Comments INFORMATION SOURCE (unrecogn ized section and content) DATE CREATED AUTHOR 06/16/2024 [facility] DATE CREATED AUTHOR AUTHOR'S ORGANIZ ATION 02/09/2025 [facility] EPIC DATE CREATED AUTHOR AUTHOR'S ORGANIZ ATION 06/14/2025 [facility] DATE CREATED AUTHOR AUTHOR'S ORGANIZ ATION 07/02/2025 [facility] Reason for Visit (unrecogniz ed section and content) Reason Comments Gynecologic Exam Patient here for a y early. Would like to discuss bilateral salpingectomy. Patient having monthly periods lasting 3-4 days with light bleeding and severe cramping to the point she calls off work. 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 Denies other problems. Patient reports that she lost 20 # does not use anything for birthcontrol. Patient also reports mood swings, feeling sadness to the point that interrupting her daily activities Reason Comments Follow-up Patient here for a f ollow up after pelvic ultrasound due to painful cramping. Denies other problems. Patient reports that her grandmother recently just and she is reconsidering her decision on a tubal. LMP 09/11/24 Reason Comments new patient Pt states she wants tested for gluten, wheat, soy and diary. She takes only supplements. 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 This clinical summary was aggregated from multiple sources. Caution should be exercised in using it in the provision of clinical care. This summary normalizes information from multiple sources, and as a consequence, information in this document may materially change the coding, format and clinical context of patient data. In addition, data may be omitted in some cases. CLINICAL DECISIONS SHOULD BE BASED ON THE PRIMARY CLINICAL RECORDS. [facility] [employer] [facility]. provides no warranty or guarantee of the accuracy or completeness of information in this document.
[2025-07-03 12:06] LABS: Alanine Aminotransferase 28 U/L (14-59); Albumin Globulin Ratio 0.9; Albumin Level 4.0 g/dL (3.4-5.0); Alkaline Phosphatase 69 U/L (46-116); Anion Gap 13.6; Aspartate Amino Transferase 14 U/L (15-37); Blood Urea Nitrogen 10.0 mg/dL (7.0-18.0); Calcium 9.4 mg/dL (8.5-10.1); Carbon Dioxide 28.4 mmol/L (21.0-32.0); Chloride 103 mmol/L (98-107); Estimated GFR (African America >60 (>=60 mL/min/1.73m^2); Estimated GFR (Non-African Ame >60 (>=60 mL/min/1.73m^2); Globulin 4.4 g/dL; Glucose 129 mg/dL (74-106); Potassium 4.0 mmol/L (3.5-5.1); Sodium 141 mmol/L (136-145); Total Protein 8.4 g/dL (6.4-8.2)
== END 2025-07-03 11:10 | disposition home or self-care (01) ==
LOC: LAB 11:10
PROVIDERS: PCP Nurse Practitioner Family; Visit Provider Nurse Practitioner Family
DX: I10 Essential (primary) hypertension (principal)
CPT/HCPCS: 36415; 80053